=== PATIENT | male | born 1965 | race African-American/Black ===

== ENCOUNTER 2017-09-14 17:49 | Emergency (ER) | payer OTHER ==
[~2017-09-14] VITALS: Ht 165.1 cm; Wt 60.0 kg
[~2017-09-14 17:49] MED LIST: AMOX500T PO; Z.0.NO CURRENT MEDS
[2017-09-14 18:28] VITALS: BP 139/91; PULSE 75; RESP 16; TEMP 102.2; O2SAT 98
[2017-09-14] MEDS ORDERED: IBUP-232 PO (19:14)
[2017-09-14] MEDS ORDERED: SUDO60TA2 PO (19:14)
[2017-09-14] MEDS ORDERED: AMOX500T PO (19:14)
--- NOTE | 2017-09-14 19:14 | PD ---
HPI Chief Complaint: ENT Complaint Time Seen by Provider: 19:08 Travel History International Travel<30 days: No Contact w/Intl Traveler<30days: No Traveled to known affect area: No History of Present Illness HPI 51-year-old male patient with history of no significant past medical issues, presents to the ER with one-week history of cough, cold symptoms, fevers, and right ear pains. He was concerned that he may have the flu. He has not been having body aches, vomiting, diarrhea, or any other symptoms. He denies any hearing loss. He does not know of any sick contacts. Modifying Factors: None Associated Signs & Symptoms: Cough, cold symptoms, right ear pain Risk Factors: None PFSH Past Medical History Medical History: Denies Significant Hx Asthma: Yes Diabetes: No Kidney Stones: Yes (STILL HAS THEM) Reproductive: No Tetanus Vaccination: > 5 Years Social History Alcohol Use: Yes (3 BEERS) Tobacco Use: Yes (1/2 PPD) Substance Use: No Allergies-Medications (Allergen,Severity, Reaction): Coded Allergies: iodine (Unverified Allergy, Severe, 09/14/17) potassium iodide (Unverified Allergy, Severe, 09/14/17) povidone-iodine (Unverified Allergy, Severe, 09/14/17) shrimp (Unverified Allergy, Severe, THROAT CLOSES, 09/14/17) sodium iodide (Unverified Allergy, Severe, 09/14/17) sodium iodide (Unverified Allergy, Severe, 09/14/17) Reported Meds & Prescriptions Reported Meds & Active Scripts Active No Active Prescriptions or Reported Medications Review of Systems Except as stated in HPI: all other systems reviewed are Neg Physical Exam Narrative GENERAL: Well-developed middle-aged -Citizen Of [place] male patient currently and mild distress. Awake and oriented 3. SKIN: Focused skin assessment warm/dry. HEAD: Atraumatic. Normocephalic. EYES: Pupils equal and round. No scleral icterus. No injection or drainage. ENT: Mucosa pink and moist. No erythema or exudates. No uvular edema. No uvular , palatal, or tonsillar deviation. Airway patent. EARS: Bilateral pinnae and external canals appear within normal limits. Bilateral tympanic membranes without erythema, dullness or perforation. There is notable bulging with clear fluid behind the right TM. NECK: Trachea midline. No JVD. Supple. CARDIOVASCULAR: Regular rate and rhythm. No murmur appreciated. RESPIRATORY: No accessory muscle use. Clear to auscultation. Breath sounds equal bilaterally. GASTROINTESTINAL: Abdomen soft, non-tender, nondistended. Hepatic and splenic margins not palpable. MUSCULOSKELETAL: No obvious deformities. No clubbing. No cyanosis. No edema. NEUROLOGICAL: Awake and alert. No obvious cranial nerve deficits. Motor grossly within normal limits. Normal speech. PSYCHIATRIC: Appropriate mood and affect; insight and judgment normal. Data Data Last Documented VS Vital Signs Date Time Temp Pulse Resp B/P (MAP) Pulse Ox O2 Delivery O2 Flow Rate FiO2 09/14/17 18:28 102.2 75 16 139/91 (107) 98 Orders Orders Acetaminophen (Tylenol) (09/14/17 19:15) MDM Medical Decision Making Medical Screen Exam Complete: Yes Emergency Medical Condition: Yes Medical Record Reviewed: Yes Differential Diagnosis Otitis media versus URI versus influenza Narrative Course At this point, he is well beyond the window of treatment for influenza. He appears to be doing well. He is ambulatory, throat is only mildly erythematous. The right TM does appear to be bulging a bit and there may be a serous otitis here. My plan would be to treat him since his been going on well over a week at this point. We will have him follow-up as needed with primary care doctor. He is running fevers in the ER and was given Tylenol. Return for any worsening in symptoms as necessary. The plan has been discussed with him and he states understanding. Diagnosis Primary Impression: Otitis media Med/Other Pt SpecificInfo: Prescription(s) given Scripts Pseudoephedrine (Pseudoephedrine) 60 Mg Tab 60 MG PO Q6H Y for NASAL CONGESTION, #12 TAB 0 Refills Prov: Colton Galarza MD 09/14/17 Ibuprofen (Ibuprofen) 600 Mg Tab 600 MG PO Q6H Y for Pain/Inflammation, #20 TAB 0 Refills Prov: Colton Galarza MD 09/14/17 Amoxicillin (Amoxicillin) 500 Mg Tab 500 MG PO TID for Infection for 7 Days, TAB 0 Refills Prov: Colton Galarza MD 09/14/17 Disposition: 01 DISCHARGE HOME Condition: Stable Colton Galarza MD Sep 14, 2017 19:14
[2017-09-14] MEDS ORDERED: ACETAMINOPHEN 500 MG CPLT PO ONE (19:15)
[2017-09-14 19:52] VITALS: TEMP 99.4
== END 2017-09-14 19:54 | disposition home or self-care (01) ==
LOC: NEPD 17:49
DX: H66.91 Otitis media, unspecified, right ear (principal); J45.909 Unspecified asthma, uncomplicated; F17.210 Nicotine dependence, cigarettes, uncomplicated; Z87.442 Personal history of urinary calculi
CPT/HCPCS: 99283